=== PATIENT | male | born 1985 | race African-American/Black ===

== ENCOUNTER → 2018-04-23 | Outpatient (CLI) | payer BC ==
[2018-04-23 13:39] LABS: Basophils # (auto) 0 uL; Basophils % (auto) 0.5 % (0.0-2.0); Eosinophils # (auto) 0.1 uL; Eosinophils % (auto) 2.1 % (0.0-7.0); Hematocrit 47.1 % (41.0-53.0); Hemoglobin 15.6 g/dL (13.5-17.5); Lymphocytes # (auto) 1.7 uL; Lymphocytes % (auto) 31.4 % (10.0-50.0); Mean Corpuscular Hemoglobin 27.9 pg (28.0-32.0); Mean Corpuscular Hgb Conc. 33.1 g/dL (32.0-36.0); Mean Corpuscular Volume 84.3 fL (80.0-100.0); Monocytes # (auto) 0.4 uL; Neutrophils # (auto) 3.2 uL; Nucleated Red Blood Cells % 0.1 %; Platelet Count (auto) 146 10^3/uL (140-450); Red Blood Cells 5.58 10^6/uL (4.5-5.90); Red Cell Distribution Width 14.7 % (11.8-14.3); White Blood Cell 5.4 10^3/uL (4.4-10.8)
[2018-04-23 13:52] LABS: Urine Bacteria NONE SEEN /hpf (None Seen); Urine Blood Negative /uL (Negative); Urine Specific Gravity 1.016 (1.001-1.035); Urine WBC <1 /hpf (0 - 3)
[2018-04-23 14:17] LABS: Albumin 4.3 g/dL (3.4-5.0); Calcium 8.6 mg/dL (8.5-10.1)
[2018-04-23 14:22] LABS: BUN/Creatinine Ratio 7.1; Bilirubin, Total 0.5 mg/dL (0.2-1.0)
[2018-04-25 11:26] LABS: BUN/Creatinine Ratio 3.8; Calcium 9.3 mg/dL (8.5-10.1); Potassium 3.8 mmol/L (3.5-5.1)
== END | disposition home or self-care (01) ==
LOC: LAB 13:03
PROVIDERS: ATTEND Internal Medicine
DX: N19 Unspecified kidney failure (principal); R42 Dizziness and giddiness
CPT/HCPCS: 36415; 80048; 80053; 81001; 83690; 85025